=== PATIENT | female | born 1945 | race Caucasian/White ===

== ENCOUNTER 2022-08-03 06:41 | Day surgery (SDC) | payer MEDICARE, OTHER ==
[~2022-08-03] VITALS: Ht 147.3 cm; Wt 87.9 kg
[2022-08-03] VITALS (7 sets, daily range): BP systolic 157–190; BP diastolic 67–86
[2022-08-03] MEDS ORDERED: ceFAZolin inj. 2,000 MG in normal saline soln 50 ML IV ONE (07:10)
[2022-08-03] MEDS ORDERED: normal saline 1000ml 1,000 ML IV PRN (07:10)
[2022-08-03] MEDS ORDERED: ASPI-1265 PO (07:18)
[2022-08-03] MEDS ORDERED: SERT-434 PO (07:18)
[2022-08-03] MEDS ORDERED: IBUP-1986 PO (07:18)
[2022-08-03] MEDS ORDERED: MET0.75G TOP (07:18)
[2022-08-03] MEDS ORDERED: CALC-825 PO (07:18)
[2022-08-03] MEDS ORDERED: ROSU20TA31 PO (07:18)
[2022-08-03] MEDS ORDERED: OFLO5DRO3 IO (07:18)
[2022-08-03] MEDS ORDERED: LEVO25TA7 PO (07:18)
[2022-08-03] MEDS ORDERED: BROM3DRO EACHEYE (07:18)
[2022-08-03] MEDS ORDERED: LOTE5DRO9 EACHEYE (07:18)
[2022-08-03] MEDS ORDERED: ceFAZolin inj. 2,000 MG in normal saline 100ml IV soln 100 ML IV ONE (07:45)
[2022-08-03] MEDS ORDERED: ceFAZolin inj. 2,000 MG in dextrose 5%-water 100 ML IV ONE (07:45)
[2022-08-03] MEDS ORDERED: midazolam 1 mg/ML 2ml injection ONE ×2 (08:19→09:33)
[2022-08-03] MEDS ORDERED: diphenhydrAMINE 50 mg/ml inj ONE (08:19)
[2022-08-03] MEDS ORDERED: fentaNYL/PF 50MCG/1 ML 2ML syringe ONE ×2 (08:20→09:33)
[2022-08-03] MEDS ORDERED: LIDOcaine 1% 30ml preserv. free vial ONE (08:20)
[2022-08-03] MEDS ORDERED: iohexol 300mg/ml 100ml inj. ONE (08:20)
[2022-08-03 08:23] LABS: BASOPHILS # (AUTO) 0.1 X10'3 (0-0.2); BASOPHILS % (AUTO) 1.5 % (0-1); EOSINOPHILS # (AUTO) 0.2 X10'3 (0-0.9); EOSINOPHILS % (AUTO) 2.5 % (0-6); HEMATOCRIT 42.6 % (35.0-45.0); HEMOGLOBIN 14.2 g/dl (12.0-16.0); LYMPHOCYTES # (AUTO) 2.2 X10'3 (1.1-4.8); MEAN CORPUSCULAR HEMOGLOBIN 30.7 PG (27.0-31.0); MEAN CORPUSCULAR HGB CONC 33.3 g/dL (33.0-36.5); MEAN CORPUSCULAR VOLUME 92.2 FL (78-98); MEAN PLATELET VOLUME 8.7 FL (7.4-10.4); MONOCYTES # (AUTO) 0.5 X10'3 (0-0.9); MONOCYTES % (AUTO) 6.4 % (2-12); NEUTROPHILS # (AUTO) 4.8 X10'3 (1.8-7.7); NEUTROPHILS % (AUTO) 61.6 % (42-75); PLATELET COUNT 284 X10'3 (140-440); RED BLOOD COUNT 4.62 X10'6 (4.20-5.60); RED CELL DISTRIBUTION WIDTH 13.8 % (11.5-14.5); WHITE BLOOD COUNT 7.8 X10'3 (4.5-11.0)
== END 2022-08-03 12:30 | disposition home or self-care (01) ==
LOC: SSTAY O 06:41
PROVIDERS: ATTEND Radiology Vascular & Interventional Radiology
DX: S22.050A Wedge compression fracture of T5-T6 vertebra, initial encounter for closed fracture (principal); M80.08XA Age-related osteoporosis with current pathological fracture, vertebra(e), initial encounter for fracture; Y83.8 Other surgical procedures as the cause of abnormal reaction of the patient, or of later complication, without mention of misadventure at the time of the procedure; Z79.01 Long term (current) use of anticoagulants; Z79.899 Other long term (current) drug therapy; E03.9 Hypothyroidism, unspecified; E78.5 Hyperlipidemia, unspecified; Z88.6 Allergy status to analgesic agent; Z88.8 Allergy status to other drugs, medicaments and biological substances
CPT/HCPCS: 22513; 36415; 85025; 85610; 87811; 99152; 99153; C1713; J1200; J2250; J3010; J3490; J7030; Q9967; 88173; 88305; 88342; A4620